=== PATIENT | male | born 1955 | race Caucasian/White ===

== ENCOUNTER 2023-06-21 06:58 | Day surgery (SDC) | payer BC, SELFPAY ==
[2023-06-15 08:28] VITALS: BMI 27.3
[2023-06-21] VITALS (9 sets, daily range): BP systolic 115–139; BP diastolic 72–89; BMI 27.3
[2023-06-21] MEDS: NORMOSOL-R 1000 IV (08:56)
[2023-06-21] MEDS: TYLENOL 1000 MG PO (08:56)
--- NOTE | 2023-06-21 12:20 | W.IMMPOSTOP ---
Surgical Immed Post Op Note
-
Primary Surgeon: Dorina
Assisting: Michael EVANGELISTA
Pre-op Diagnosis: Right inguinal hernia, umbilical hernia
Post-op Diagnosis: Incarcerated right inguinal hernia, umbilical hernia
Procedure Performed: Robot assisted laparoscopic repair of incarcerated right inguinal hernia and umbilical hernia (rTAPP)
Anesthesia Type: GETA + TAP block
Specimen / Cultures: None
Estimated Blood Loss: 5cc
Complications: None immediate
Operative Findings: Right indirect defect with large deep sac, copletely reduced, moderate cord lipoma; umbilical defects 1x2cm 1cm fascial bridge and additional 1cm x 1cm defect superior to umbilicus [Total hernia size: 4cm]; right XL MID 3D max,
12cm x 12cm bard soft mesh
--- NOTE | 2023-06-21 12:22 | OR.RPT ---
Operative Report
Operative Report
Primary Surgeon: Dorina
Assisting: Michael EVANGELISTA
Pre-op Diagnosis: Right inguinal hernia, umbilical hernia
Post-op Diagnosis: Incarcerated right inguinal hernia, umbilical hernia
Procedure Performed: Robot assisted laparoscopic repair of incarcerated right inguinal hernia and umbilical hernia (rTAPP)
Anesthesia Type: GETA + TAP block
Specimen / Cultures: None
Estimated Blood Loss: 5cc
Complications: None immediate
Operative Findings: Right indirect defect with large deep sac, completely reduced, moderate cord lipoma; umbilical defects 1x2cm 1cm fascial bridge and additional 1cm x 1cm defect superior to umbilicus [Total hernia size: 4cm]; right XL MID 3D max,
12cm x 12cm bard soft mesh
Date of surgery: 06/21/23
Indications:� This 68M developed�right inguinal hernia.�On exam umbilical hernia was identified. He does heavy lifting at work, and he asked that we repair both hernias today. Robot assisted laparoscopic repair was planned. Preoperative imaging
showed left colon involvement, bowel prep was completed.
Description of procedure:� The patient was taken to the operating room and positioned into supine position. The patient�s abdomen was prepped and draped in standard sterile fashion. A time-out was completed verifying correct patient, procedure,
site, positioning, and implants and special equipment prior to beginning this procedure.� A stab incision was made in the left upper quadrant, a Veress needle was inserted and proper position was confirmed by aspiration and saline drop test.
Following this, pneumoperitoneum was created with insufflation of carbon dioxide to 12 mmHg. Then a 8mm robotic trocar was inserted above and to the left of the umbilicus. A laparoscope was inserted and the area of initial trocar entry and Veress
needle placement were both inspected and no injuries were found. Two 8mm trocars were then placed lateral to the rectus sheath under direct visualization.
Both inguinal regions were inspected and the median umbilical ligament, medial umbilical ligament, and lateral umbilical fold were identified. Left groin was inspected and no hernia was identified. Attention was turned to the right groin. The
peritoneum was incised transversely above the defect and a flap was developed in the caudad direction. Daljit�s ligament was identified ultimately dissected to its junction with the iliac vein and the space of Retzius was developed bluntly.� The
dissection was continued inferiorly to the iliopubic tract, with care taken to avoid injury to the femoral branch of the genitofemoral nerve and the lateral femoral cutaneous nerve. The cord structures were parietalized.
The direct space was inspected and a hernia was not identified. The femoral space was inspected and no hernia was identified.� The indirect space was inspected and large defect with a deep sac and incarcerated fat was identified and reduced by
gentle traction.
Extra large right MID 3D max mesh was passed through a trocar. The mesh was placed into the preperitoneal space and moved into position to lay flat and completely cover the direct, indirect, and femoral spaces with overlap at the midline. The mesh
was secured into place using 2-0 vicryl suture to Daljit�s ligament medially and laterally. Care was taken to avoid the inferolateral triangles containing the iliac vessels and genital nerves.
The peritoneal flap was closed over the mesh and secured with 2-0 monocryl stratafix suture in similar positions of safety. A 14g angiocath was used to decompress the preperitoneal space revealing good seal and all mesh in good position without
folding or curling. After ensuring adequate hemostasis, the trocars were removed and the pneumoperitoneum allowed to escape. The trocar incisions were closed at the skin level using 4-0 monocryl and topical skin adhesive. The patient tolerated the
procedure well and was taken to the postanesthesia care unit in stable condition.
Attention was turned to the umbilicus. The peritoneum as incised transversely about 6cm superior to the umbilicus. A peritoneal flap was developed in inferior direction with blunt and sharp dissection and judicious electrocautery. The hernia defects
were exposed and measured as above. Fatty contents were reduced and the defects were closed with 0 PDS stratafix suture. A 12cm x 12 cm bard soft mesh was passed through a trocar into the abdomen and placed flush against the abdominal wall centered
on the defects. The mesh was fixated to the abdominal wall with 2-0 vicryl suture. A flap rent on the left was closed with the same suture. The peritoneum was reapproximated to the abdominal wall overr the mesh with a running 2-0 monocryl stratafix
suture. A 14g angiocath was used to decompress the preperitoneal space revealing good seal and all mesh in good position without folding or curling.
I was present for and performed all hercules portions of the procedure. The resident assisted with access, exposure and skin closure.�
== END 2023-06-21 14:35 | disposition home or self-care (01) ==
LOC: SDS 06:58
PROVIDERS: ATTENDING PHYSICIAN Surgery; FAMILY PHYSICIAN Physician Assistant
DX: K40.30 Unilateral inguinal hernia, with obstruction, without gangrene, not specified as recurrent (principal); K42.9 Umbilical hernia without obstruction or gangrene
CPT/HCPCS: 49650; 49594; 36415; 93005; C1781

== ENCOUNTER → 2023-07-19 07:35 | Outpatient (REF) | payer BC, SELFPAY | LOC: MRI 3T 07:35 | PROVIDERS: ATTENDING PHYSICIAN Specialist; FAMILY PHYSICIAN Physician Assistant | DX: R97.20 Elevated prostate specific antigen [PSA] (principal); Z12.5 Encounter for screening for malignant neoplasm of prostate; Z80.42 Family history of malignant neoplasm of prostate | CPT/HCPCS: 72197; A9575 ==

== ENCOUNTER → 2023-08-31 14:52 | Outpatient (REF) | payer BC, SELFPAY ==
[2023-08-31 16:15] LABS: % Basophils 1.1 % (0-2); % Eosinophils 5.1 % (0-6); % Immature Granulocytes 0.4 % (0-0.5); % Lymphocytes 27.5 % (20.5-51.1); % Monocytes 13.2 % (1.7-9.3); % Neutrophils 52.7 % (42.2-75.2); Absolute Basophils 0.1 10^3/uL (0-0.2); Absolute Eosinophils 0.3 10^3/uL (0-0.7); Absolute Lymphocytes 1.6 10^3/uL (1.2-3.4); Absolute Monocytes 0.8 10^3/uL (0.1-0.6); Hematocrit 38.4 % (39.0-52.0); Hemoglobin 12.9 g/dL (13.0-18.0); Mean Corp Hgb Conc. 33.6 g/dL (33.0-37.0); Mean Corpuscular Volume 92.3 fL (80.0-94.0); Mean Platelet Volume 9.8 fL (7.4-10.4); Nucleated Red Blood Cells % 0 % (-); Platelet Count 209 10^3/uL (130-400); Red Blood Cell Count 4.16 10^6/uL (4.70-6.10); Red Cell Dist. Width 12.3 % (11.5-14.5); White Blood Cell Count 5.7 10^3/uL (4.8-10.8)
[2023-08-31 16:23] LABS: INR 1.02; PT 13.2 Sec (11.4-14.6)
[2023-08-31 16:24] LABS: APTT 27.4 Sec (23.4-35.0)
[2023-08-31 16:33] LABS: Blood Urea Nitrogen 26 mg/dl (9-20); Calcium 9.5 mg/dl (8.4-10.2); Carbon Dioxide 27 mmol/L (22-30); Chloride 103 mmol/L (98-107); Glucose 75 mg/dl (70-99); Potassium 4.1 mmol/L (3.5-5.1); Sodium 137 mmol/L (135-145); eGFR > 60.00
== END ==
LOC: REG 14:52
PROVIDERS: ATTENDING PHYSICIAN Urology; FAMILY PHYSICIAN Physician Assistant
DX: C61 Malignant neoplasm of prostate (principal)
CPT/HCPCS: 36415; 71046; 80048; 85025; 85610; 85730; 93005

== ENCOUNTER → 2023-09-02 08:14 | Outpatient (REF) | payer BC, SELFPAY | LOC: RAD 08:14 | PROVIDERS: ATTENDING PHYSICIAN Radiology Radiation Oncology; FAMILY PHYSICIAN Physician Assistant | DX: C61 Malignant neoplasm of prostate (principal) | CPT/HCPCS: 78306; A9503 ==

== ENCOUNTER → 2023-11-24 13:10 | Outpatient (REF) | payer BC, SELFPAY | LOC: PET 13:10 | PROVIDERS: ATTENDING PHYSICIAN Radiology Radiation Oncology | DX: C61 Malignant neoplasm of prostate (principal) | CPT/HCPCS: 78815; A9595 ==

== ENCOUNTER → 2024-02-29 14:17 | Outpatient (REF) | payer BC, SELFPAY ==
[2024-02-29 16:54] LABS: % Basophils 0.3 % (0-2); % Eosinophils 2.1 % (0-6); % Immature Granulocytes 0.5 % (0-0.5); % Monocytes 12.7 % (1.7-9.3); % Neutrophils 70.4 % (42.2-75.2); Absolute Eosinophils 0.1 10^3/uL (0-0.7); Absolute Lymphocytes 0.5 10^3/uL (1.2-3.4); Absolute Monocytes 0.5 10^3/uL (0.1-0.6); Absolute Neutrophils 2.7 10^3/uL (1.4-6.5); Hematocrit 33.2 % (39.0-52.0); Hemoglobin 11.6 g/dL (13.0-18.0); Mean Corp Hgb Conc. 34.9 g/dL (33.0-37.0); Mean Corpuscular Hgb 31.4 pg (27.0-31.0); Mean Corpuscular Volume 89.7 fL (80.0-94.0); Mean Platelet Volume 9.9 fL (7.4-10.4); Nucleated Red Blood Cells % 0 % (-); Platelet Count 170 10^3/uL (130-400); Red Cell Dist. Width 12.3 % (11.5-14.5); White Blood Cell Count 3.8 10^3/uL (4.8-10.8)
[2024-02-29 17:17] LABS: ALT (SGPT) 20 U/L (0-50); AST (SGOT) 23 U/L (17-59); Alkaline Phosphatase 52 U/L (38-126); Blood Urea Nitrogen 25 mg/dl (9-20); Calcium 9.2 mg/dl (8.4-10.2); Carbon Dioxide 27 mmol/L (22-30); Chloride 103 mmol/L (98-107); Glucose 79 mg/dl (70-99); Potassium 4.4 mmol/L (3.5-5.1); Sodium 141 mmol/L (135-145); Total Bilirubin 0.7 mg/dl (0.2-1.3); Total Protein 6.7 g/dl (6.3-8.2); eGFR > 60.00
[2024-02-29 17:28] LABS: PSA, Total - Diagnostic < 0.06 ng/ml (0.0-4.0)
== END ==
LOC: REG 14:17
PROVIDERS: ATTENDING PHYSICIAN Internal Medicine Hematology & Oncology; FAMILY PHYSICIAN Physician Assistant
DX: C61 Malignant neoplasm of prostate (principal)
CPT/HCPCS: 36415; 80053; 84153; 85025